=== PATIENT | male | born 1980 | race Caucasian/White ===

== ENCOUNTER 2016-09-13 23:52 | Emergency (ER) | payer SELFPAY ==
[~2016-09-13 23:52] MED LIST: CYMBALTA30 M1 PO; KLONOPIN1 M1 PO; NAPROSYN500 M1 PO; PERCOCET 5-3251 EACH PO
[2016-09-14] MEDS ORDERED: HYDROCODON-ACE1 EA16 PO (01:40)
[2016-09-14] MEDS ORDERED: ZOFRAN ODT4 MG PO (01:40)
== END 2016-09-14 01:46 ==
LOC: EDMED 23:52
DX: S71.111A Laceration without foreign body, right thigh, initial encounter (principal); W26.0XXA Contact with knife, initial encounter; Y92.019 Unspecified place in single-family (private) house as the place of occurrence of the external cause; F17.200 Nicotine dependence, unspecified, uncomplicated
CPT/HCPCS: J2270; J2405; J7030